=== PATIENT | female | born 1955 | race Caucasian/White ===

== ENCOUNTER 2019-09-18 07:48 | Outpatient (CLI) | payer SELFPAY ==
--- NOTE | 2019-09-18 07:56 | US_ITS ---
WS: [id number] ULTRASOUND PELVIS TECHNIQUE: Transabdominal and transvaginal. ULTRASOUND PELVIS TECHNIQUE: Transabdominal. CLINICAL INFORMATION: PELVIC MASS IN FEMALE LMP: 5 years : No. COMPARISON: None. FINDINGS: Uterus Orientation: Anteverted. Size: 8.6 cm x 5.1 cm x 7.2 cm. Masses: Several fibroids the largest measuring 4.0 3.8 x 4.3 CM. Additional fibroid measured 2.0 x 1. 3 x 1.9 cm Endometrium: Normal. Endometrium thickness: 0.6 cm. Right ovary not identified. Large cystic and solid mass like lesion left ovary measuring 7.9 x 7.4 x 7.9 cm suspicious for neopla sm. Free fluid: None. Other findings: None. US/US pelvic with transvaginal IMPRESSION: 1. Large cystic and solid heterogeneous mass left ovary measuring 7.9 x 7.4 x 7.9 cm suspicious for ovarian neoplasm. Recommend [facility] consultation for resectio n. 2. Large pedunculated fibroids the largest measuring 4.0 x 3.8 x 4.3 CM. Addit ional fibroid measuring 2.0 x 1.9 CM. 3. Endometrium appears relatively normal at 6 mm.
== END 2019-09-18 07:49 | disposition home or self-care (01) ==
PROVIDERS: Visit Provider Nurse Practitioner Family
DX: N83.292 Other ovarian cyst, left side (principal); D25.9 Leiomyoma of uterus, unspecified; R19.00 Intra-abdominal and pelvic swelling, mass and lump, unspecified site
CPT/HCPCS: 76830; 76856

== ENCOUNTER → 2019-09-20 09:07 | Outpatient (BNVA) | payer SELFPAY | PROVIDERS: PCP Nurse Practitioner Family; Visit Provider Nurse Practitioner Family | DX: R10.2 Pelvic and perineal pain (principal); N83.8 Other noninflammatory disorders of ovary, fallopian tube and broad ligament | CPT/HCPCS: 80048; 85007; 85027 ==

== ENCOUNTER 2019-09-29 13:48 | Outpatient (CLI) | payer SELFPAY ==
[2019-09-29] MEDS: iohexol 300 mg/mL 50 mL Btl PO (14:11)
--- NOTE | 2019-09-29 15:30 | CT_ITS ---
WS: [id number] CT ABDOMEN PELVIS TECHNIQUE: Contrast-enhanced CT of the abdomen and pelvis with coronal and sagittal reformatted image s. CLINICAL INFORMATION: Ovarian mass COMPARISON: None. DLP: 1288.[address] scans at [facility] use at least one of these dose optimization techniques: automat ed exposure control; mA and/or kV adjustment per patient size (includes targeted exams where dose is matched to clinical indication); or iterative reconstruction. FINDINGS: Interval progression of the previously described left adnexal complex peripheral enhancing mass with peripheral lobulation. The cystic component has significantly progressed in size compared to the prio r CT. Cystic components today measures 10.9 x 10.4 x 9.1 CM. Normal left ovary is not definitely visu alized. Induration surrounding the cystic mass with fluid in the left lower quadrant which is new fro m the prior CT. Mesenteric induration in the surrounding anterior pelvic soft tissues. Differential c onsiderations include cystic ovarian neoplasm versus tubo-ovarian abscess. Neoplasm is favored in a p atient this age. Recommend correlation for infection and peritonitis. Stable appearing submucosal fibroids involving the right adnexa and uterus eccentric to the right. Th is right adnexal presumed fibroid measures 5.7 x 5.9 x 6.8 cm. Diffuse heterogeneous uterine enhancem ent with fluid along the endometrial canal. Dorsal fibroid measuring 5.2 x 4.9 cm. Large left adnexal cystic mass displaces the uterus left to right with compression of the bladder. Lung bases are well aerated. Cholecystectomy clips. Normal portal vein and splenic vein. 6 mm right h epatic low-attenuation lesion too small characterize but likely cyst or hemangioma. Cavernous hemangi juan inferior right hepatic lobe measuring 1.4 CM. Portal vein and splenic vein are patent. Normal spl een. Adrenal glands are normal. Normal renal parenchymal enhancement. Small bilateral renal cysts. No rmal caliber abdominal aorta. Shotty periaortic lymph nodes the largest measuring 8 mm. No inguinal lymphadenopathy. No pelvic lymphadenopathy. CT/CT abdomen pelvis w con* [id number] IMPRESSION: 1. Again seen is the large heterogeneous enhancing complex left adnexal mass w ith significant interval enlargement of the cystic components since August CT. Cystic component today measures 10.4 x 10.9 x 9.1 CM. Previously thi s only measured 2.6 x 2.5 CM on the prior CT. 2. Progressed induration in the surrounding anterior mesentery with new pocket of free fluid in the left lower quadrant abutting the cystic mass. Recommend c orrelation for peritonitis. 3. Differential considerations for the large cystic adnexal mass include ovari an neoplasm especially in a patient this age. Tubo-ovarian abscess should also be considered although less likely. 4. Diffuse heterogeneous enhancement involving the uterus with uterine fibroid s which appear unchanged. Largest fibroid in the right adnexa measuring 5.7 x 5 .9 x 6.8 cm. 5. Shotty periaortic lymph nodes the largest lymph node measuring 8 mm. No per iaortic lymphadenopathy. No pelvic or inguinal lymphadenopathy. 6. Peripheral enhancing lesion in the inferior right hepatic lobe most consist ent with a cavernous hemangioma measuring 14 mm. Additional smaller lesion in t he right hepatic lobe measuring 6 mm too small to characterize likely cyst or h emangioma. 7. Normal bilateral renal parenchymal enhancement. No hydronephrosis.
[2019-09-29] MEDS: iohexol 300 mg/mL 100 mL Btl IV (15:32)
== END 2019-09-29 13:49 | disposition home or self-care (01) ==
LOC: RADWPI 13:52
PROVIDERS: PCP Nurse Practitioner Family; Visit Provider Obstetrics & Gynecology
DX: N83.8 Other noninflammatory disorders of ovary, fallopian tube and broad ligament (principal); K76.9 Liver disease, unspecified
CPT/HCPCS: 74177; Q9966; Q9967

== ENCOUNTER → 2021-08-28 09:18 | Outpatient (BNVA) | payer MEDICAID, SELFPAY | PROVIDERS: PCP Nurse Practitioner Family; Visit Provider Nurse Practitioner Family | DX: E78.5 Hyperlipidemia, unspecified (principal); I10 Essential (primary) hypertension | CPT/HCPCS: 80053; 80061 ==

== ENCOUNTER → 2022-03-23 10:14 | Outpatient (BNVA) | payer MEDICAID, SELFPAY | PROVIDERS: PCP Nurse Practitioner Family; Visit Provider Nurse Practitioner Family | DX: I10 Essential (primary) hypertension (principal); E78.5 Hyperlipidemia, unspecified | CPT/HCPCS: 80053; 80061 ==

== ENCOUNTER → 2022-10-12 08:58 | Outpatient (BNVA) | payer OTHER, MEDICAID, SELFPAY | PROVIDERS: PCP Nurse Practitioner Family; Visit Provider Nurse Practitioner Family | DX: I10 Essential (primary) hypertension (principal); E78.5 Hyperlipidemia, unspecified | CPT/HCPCS: 80053; 80061 ==

== ENCOUNTER → 2023-02-05 11:54 | Outpatient (BNVA) | payer OTHER, MEDICAID, SELFPAY | PROVIDERS: PCP Nurse Practitioner Family; Visit Provider Nurse Practitioner Family | DX: E78.5 Hyperlipidemia, unspecified (principal); I10 Essential (primary) hypertension; L91.8 Other hypertrophic disorders of the skin | CPT/HCPCS: 80053; 80061 ==

== ENCOUNTER → 2023-02-10 14:19 | Outpatient (BNVA) | payer OTHER, MEDICAID, SELFPAY | PROVIDERS: PCP Nurse Practitioner Family; Visit Provider Nurse Practitioner Family | DX: L91.8 Other hypertrophic disorders of the skin (principal) | CPT/HCPCS: 88305; 88342 ==

== ENCOUNTER 2023-10-08 12:30 | Outpatient (CLI) | payer MEDICARE, SELFPAY ==
--- NOTE | 2023-10-08 13:00 | XR_ITS ---
WS: [id number] DEXA (DUAL ENERGY X-RAY ABSORPTIOMETRY) Bone mineral density was performed using a [employer] machine. HISTORY: M81.0 - Age-related osteoporosis without current patholog... COMPARISON: None available. Lumbar spine BMD (L1-L4): 1.303 g/cm2 T score: 1.0 Z score: 2.6 Total hip BMD: Left: 1.017 g/cm2. T score: 0.1 Z score: 1.3 Right: 0.972 g/cm2. T score: -0.3 Z score: 0.9 10 year probability of a major osteoporotic fracture is 8.4%. IMPRESSION: NORMAL BONE MINERAL DENSITY based upon the WHO classification for females.
--- NOTE | 2023-10-08 13:04 | MM_ITS ---
WS: [id number] Bilateral screening 3D tomosynthesis digital mammogram, 10/08/2023 Clinical Data: Z12.39 - Encounter for other screening for malignant neop... Comparison: None. Findings: The breast parenchymal pattern shows fibroglandular tissue. No spiculated masses or clustered calcifi cations are seen. There are no secondary signs of carcinoma. Impression: 1. Negative bilateral mammogram with no prior exam for review. 2. Recommend annual screening mammograms. MM/[place] [id number] BIRADS: 1-Negative FOLLOW UP: 1 Year Follow-up The CAD land checker was used.
== END 2023-10-08 12:31 | disposition home or self-care (01) ==
PROVIDERS: PCP Nurse Practitioner Family; Visit Provider Nurse Practitioner Family
DX: Z12.31 Encounter for screening mammogram for malignant neoplasm of breast; M81.0 Age-related osteoporosis without current pathological fracture
CPT/HCPCS: 77063; 77067; 77080

== ENCOUNTER → 2023-10-13 09:41 | Outpatient (BNVA) | payer MEDICARE, SELFPAY | PROVIDERS: PCP Nurse Practitioner Family; Referring Provider Nurse Practitioner Family; Visit Provider Surgery | DX: Z12.11 Encounter for screening for malignant neoplasm of colon (principal) | CPT/HCPCS: 99024; 99203 ==

== ENCOUNTER 2024-01-13 07:25 | Day surgery (SDC) | payer MEDICARE, SELFPAY ==
--- NOTE | 2024-01-13 06:49 | W.PM.OPSFHP ---
Same Day Surgery H&P Indication for Procedure/HPI DATE OF PROCEDURE: January 13, 2024 CHIEF COMPLAINT/INDICATIONFOR SURGICAL PROCEDURE: need for screening colonosocpy PREOP DIAGNOSIS: need for screening colonoscopy PLANNED PROCEDURE: Operation Date: 01/13/24 08:35 Proposed Procedures p 01884 colon G0121 screen colon A risk Z12.11(Not Applicable) - Felix Gonzáles MD Medications/Allergies* Home Medications Medication Instructions Recorded Confirmed Type lisinopril 20 mg tablet 20 mg PO BID 01/11/24 01/11/24 History lovastatin 20 mg tablet 20 mg PO DAILY 01/11/24 01/11/24 History Allergies/Adverse Reactions Allergy/AdvReac Type Severity Reaction Status Date / Time No Known Allergies Allergy Verified 01/11/24 10:54 Pertinent History/Comorbid Conditions* Medical History (Updated 10/04/23 @ 09:35 by ERNESTO Arias) Hyperlipemia HTN (hypertension), benign Family History (Updated 10/02/19 @ 13:09 by Negar England RN) Colon cancer Father Diabetes Mother Sister Brother Family/Other maternal aunts and uncles Heart disease Grandfather maternal Social History Smoking and tobacco/nicotine status: never used tobacco/nicotine Alcohol intake: never Substance/Drug Use: never Adopted: No Lives independently: Yes Household members: significant other Housing: Manufactured/Mobile home Pertinent Exam Findings alert, oriented x 3 and clear to auscultation bilaterally Recommendations Surgery/Procedure today Coding Level of Care Code Acute Code for Chg Fwd
[2024-01-13 07:36] VITALS: BP 128/82; PULSE 102; RESP 18; TEMP 36.3; O2SAT 96
--- NOTE | 2024-01-13 07:37 | ANES.PREANE2 ---
Pre-Anesthetic Assessment Height/Weight: Height 1.6 m Preop Diagnosis: need for screening colonoscopy Operation Date: 01/13/24 08:35 Proposed Procedures p 92275 colon G0121 screen colon A risk Z12.11(Not Applicable) - Felix Gonzáles MD Was Beta Elma taken within 24 hours: N/A Was Clonidine taken within 24 hours: N/A Social No alcohol and No tobacco Exam alert, oriented x 3, clear to auscultation bilaterally and regular rate & rhythm Airway Submandibular: within normal limits Cervical ROM: within normal limits Mallampati: Class II Dentition: full (Edentulous) History/ROS No significant history except as noted and No significant complaints Pulmonary None reported CV/HEM Hypertension None reported Hepatic None reported GI None reported Metabolic None reported Musc/skel None reported Neuropsych None reported Anesthetic Plan ASA status: 2 Anesthesia: Anesthesia Evaluation and MAC Risk of > 500 ml blood loss (7ml/kg in children): No Medications/Allergies Home Medications Medication Instructions Recorded Confirmed Last Taken Type lisinopril 20 mg tablet 20 mg PO BID 01/11/24 01/11/24 01/11/24 History lovastatin 20 mg tablet 20 mg PO DAILY 01/11/24 01/11/24 01/10/24 History Allergies Allergy/AdvReac Type Severity Reaction Status Date / Time No Known Allergies Allergy Verified 01/11/24 10:54 [facility] Anesthesia Medical History Hyperlipemia HTN (hypertension), benign Family History Mother Diabetes Sister Diabetes Brother Diabetes Family/Other Diabetes maternal aunts and uncles Grandfather Heart disease maternal Father Colon cancer Social History Smoking and tobacco/nicotine status: never used tobacco/nicotine Alcohol intake: never Substance/Drug Use: never Adopted: No Lives independently: Yes Household members: significant other Housing: Manufactured/Mobile home Data Anesthesia Cardiac Studies: No Data to Display
[2024-01-13 07:40] VITALS: BMI 26.5
[2024-01-13] MEDS: sodium chloride 0.9% 1,000 ML 30 ML IV (07:46)
[2024-01-13 08:52] VITALS: BP 91/47; PULSE 78; RESP 16; TEMP 36.1; O2SAT 96
[2024-01-13 09:07] VITALS: BP 105/76; PULSE 78; RESP 18; O2SAT 97
--- NOTE | 2024-01-13 09:25 | ANE.PACU2 ---
Inpatient post-anesthesia follow up: Airway intact: Yes Vital signs: Temperature 97 F Pulse Rate 78 Respiratory Rate 18 Blood Pressure 105/76 Pulse Oximetry 97 Oxygen Delivery Me thod Room Air Oxygen Flow Rate Fraction of Inspir ed Oxygen Hydration adequate: Yes Nausea and vomiting: No Pain level: 1 Mental status: Baseline
== END 2024-01-13 09:27 | disposition home or self-care (01) ==
PROVIDERS: PCP Nurse Practitioner Family; Visit Provider Surgery
PROC: 0DJD8ZZ Inspection of Lower Intestinal Tract, Via Natural or Artificial Opening Endoscopic (ICD-10-PCS; CPT 45378; principal; 2024-01-13 08:35)
DX: Z12.11 Encounter for screening for malignant neoplasm of colon (principal)
CPT/HCPCS: 45378; J2704; J7030

== ENCOUNTER → 2024-04-05 13:18 | Outpatient (BNVA) | payer MEDICARE, SELFPAY | PROVIDERS: PCP Nurse Practitioner Family; Visit Provider Nurse Practitioner Family | DX: I10 Essential (primary) hypertension (principal) | CPT/HCPCS: 80053; 80061 ==

== ENCOUNTER → 2024-12-18 08:22 | Outpatient (BNVA) | payer MEDICARE, SELFPAY | PROVIDERS: PCP Nurse Practitioner Family; Visit Provider Nurse Practitioner Family | DX: I10 Essential (primary) hypertension (principal); E78.5 Hyperlipidemia, unspecified | CPT/HCPCS: 80053; 80061; 84443 ==

== ENCOUNTER → 2025-06-22 10:15 | Outpatient (BNVA) | payer MEDICARE, SELFPAY | PROVIDERS: PCP Nurse Practitioner Family; Visit Provider Nurse Practitioner Family | DX: I10 Essential (primary) hypertension (principal) | CPT/HCPCS: 80053; 80061 ==